=== PATIENT | male | born 1970 | race Asian ===

== ENCOUNTER 2020-11-08 08:01 | Outpatient (CLI) | payer OTHER ==
[2020-11-08 09:02] VITALS: BP 148/90
--- NOTE | 2020-11-08 09:02 | SLEEP CARE CONSULTATION ---
Information from patient questionnaire entered by Oc Montgomery. I have reviewed and concur with the information entered by Oc Montgomery. This document represents the service I personally performed and the decisions made by me, Kendra Patel ARNP. History of Present Illness Service Date and Time: 11/08/2020 0801 Reason for Visit: New patient Chief Complaint: reports: Unrefreshed sleep, Snoring, Observed pauses in breathing, Other (Update supplies) Date of Onset: ~10 years Usual bedtime: ~2100 (9:00 AM) Time it takes to fall asleep: ~ 5 minutes Snores at night: Yes Observed to quit breathing while asleep: Yes Sleeps alone due to snoring: Yes Number of times waking at night: Multiple times before CPAP Reasons for waking at night: reports: Choking, Snoring, Gasping for air, Bathroom, Other (Unknown reason) Toss, Turn, or Twitch while sleeping: Yes Recalls having dreams: Yes Usually gets out of bed at: 06:00 AM Feels refreshed in the morning: Yes (with CPAP) Morning headache: Yes (No CPAP) Sleepy or fatigued during the day: Yes Ever fallen asleep while driving: Yes Takes day naps: No Dreams during day naps: Yes Prior sleep studies: Yes Year and Where: 02/2012 ([facility]); 07/2020 ([facility]) Additional HPI information: PHI PERDOMO was previously diagnosed to have very severe, AHI 63.3, obstructive sleep apnea-hypopnea syndrome and comes in today to establish care for his CPAP therapy. - Parasomnia Symptoms Ever been unable to move upon waking from sleep: No Walks in sleep: No Talks in sleep: Yes Ever acted out dreams in sleep: No Ever felt weak in the knees when startled or emotional: Yes Bothered by creepy, crawly, restless sensations in legs: Yes Problems with memory or concentration: No CPAP Compliance Data - Data Reviewed with Patient Average duration of nightly device use: 4 hours 48 minutes Compliance rate %: 48 Current pressure setting (cmH2O): 4-9 Average residual AHI: 5.4 Central apnea: 0.8 Obstructive apnea: 3.6 Compliance data discussion: He is getting his supplies from [employer] in [place]. He is using an Eson or Eson 2 nasal mask. He last changed his cushion about 1.5-2 weeks ago. He does have a backup mask if needed. Subjective Missed days of use due to: reports: mask issues (removes mask at night when asleep because he has difficulty due to nasal congestion) Patient concerns: reports: nasal congestion (occasional), dry mouth, nose, throat (when he occasionally breathes through mouth after removing mask), other (difficulty breathing through nose sometimes, just repositions and helps). denies: aerophagia, mask discomfort, air blowing in eyes, mask leak noise, condensation in mask/hose, epistaxis Observed to snore while using device: No Current pressure setting perceived as: too low (possibly) On therapy, patient: reports: sleeping better, awakening more refreshed, being more awake and alert during the day, more rested overall, other (throat less irritated in the morning). 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 Patient is and lives in [place]. Have you smoked in the past 12 months: No Cigarettes per day (20/pack): 5 Years of smokin Quit date: 2017 Smoking Pack Years: 2.0 Alcohol use: Yes Alcohol amount and frequency: 6, socially Caffeine use: Yes Caffeine amount and frequency: 3 x daily Family History Family history of sleep disordered breathing: No Allergies and Home Medications Drug allergies reviewed: Yes (NKDA) Home medication list reviewed: Yes [facility] Weight gain over past 5 years: 10 Cardiovascular: reports: high blood pressure, leg or foot swelling Respiratory: reports: chronic cough Gastrointestinal: reports: heartburn, difficulty swallowing Neurological: reports: headaches Psychiatric: denies: anxiety, depression Ear/Nose/Throat: reports: nasal congestion, sinus problems, dry mouth/throat, hoarseness, wisdom teeth removed (2 lower teeth removed). denies: tonsillectomy Endocrine: denies: thyroid disease Musculoskeletal: reports: joint pain (stiffness) Immunologic: reports: allergies to food or environment (environment (dust, luh lens)) Physical Exam Blood Pressure: 148/90 Cuff size: long Heart Rate: 63 O2 Saturation: 99 Height: 5 ft 6 in Weight: 212 lb Body Mass Index: 34.2 BMI Classification: Obese Heart: regular rate and rhythm Lungs: clear bilaterally Impression and Plan 1. Obstructive Sleep Apnea-Hypopnea Syndrome, very severe, with poor treatment compliance and fair apnea control with a minimally elevated residual AHI. On CPAP therapy, the patient has better sleep quality and is more rested overall. The patients pressure will be changed to autoCPAP 8-10 cmH20 for elevation of residual AHI. Patient has also been having some difficulty with breathing through his nose at night and he will take the mask off. He then breathes through his mouth and his mouth and throat get really dry. Nasal congestion and oral dryness can be reduced with increasing the CPAP humidity. The heated hose can be adjusted higher if condensation with higher humidity setting. Verbal instructions given on how to change humidity and heated hose settings with rationale explaining why to change. Patient would like to update his machine and supplies. He last updated his device in 2011. Patient was informed that another DME can be used. I will have my credentialing coordinator inform of DME options. A DWO prescription will then be made. Patient advised to contact this office if further supply problems. The patients CPAP is over 5 years old and of reasonable use. Thus, the CPAP will be updated. The new CPAPs also have a better humidity system which could assist control of patients dryness symptoms. A DWO prescription will be made. Compliance guidelines for new device and follow up discussed. Patient advised to contact me if pressure change is uncomfortable so that it can be adjusted. Goals for apnea control discussed. Patient's apnea severity and rationale for treatment to reduce apnea, improve sleep quality and reduce cardiovascular and cerebrovascular events was reviewed. I also reviewed the benefit of consistent device use of CPAP for hypertension and gastric reflux. He was encouraged to lose weight. Weight loss can be done with reducing portion size, reducing refined foods and balancing content with vegetables, fruit and whole grains. * Change auto CPAP pressure to 8-10 cmH2O * Transfer DME * Update machine * Notify me if snoring with mask or feeling that the pressure is too much or too little * Attempt to lose weight * Call this office if any problems using CPAP * Return for follow up one month after obtaining new device, or sooner if concerns arise Counseling Topics: Spare mask, Weight loss health impact Prescriptions: Auto CPAP, Device supplies Visit Type: In Office Time Spent with Patient (minutes): 41 Provider Statement: I spent 100% of the Face to Face Visit with the patient with greater than 50% spent counseling the patient and coordination of care.
== END 2020-11-08 08:02 | disposition home or self-care (01) ==
LOC: SC 08:01
PROVIDERS: ATTEND Nurse Practitioner Family
DX: G47.33 Obstructive sleep apnea (adult) (pediatric) (principal); E66.9 Obesity, unspecified; Z68.34 Body mass index [BMI] 34.0-34.9, adult; Z87.891 Personal history of nicotine dependence
CPT/HCPCS: 99203; 99212

== ENCOUNTER 2022-05-15 09:46 | Outpatient (CLI) | payer OTHER ==
--- NOTE | 2022-05-15 10:18 | SLEEP CARE CONSULTATION ---
Information from patient questionnaire entered by Arielle Paiz. I have reviewed and concur with the information entered by Arielle Paiz. This document represents the service I personally performed and the decisions made by me, Kendra Patel ARNP. History of Present Illness Service Date and Time: 05/15/2022 0946 Previous diagnosis: Very Severe, Obstructive Sleep Apnea-Hypopnea Syndrome AHI: 63.3 Reason for follow up: annual (LAST SEEN 10/2020) Equipment type: CPAP (RESMED Airsense 11, s/u 12/2020) Equipment obtained from: Other ([facility]; getting supplies but needs updated prescription) Mask style: Nasal Backup mask available: Yes (old mask) Last cushion change: 2 weeks Prior sleep studies: Yes Year and Where: 02/2012 ([facility]); 07/2020 ([facility]) HPI additional information: PHI PERDOMO was diagnosed to have very severe, AHI 63.3, obstructive sleep apnea-hypopnea syndrome and returned today for CPAP therapy annual follow-up. Sleep Study - Results Prior sleep studies: Yes Year and Where: 02/2012 ([facility]); 07/2020 ([facility]) CPAP Compliance Data - Data Reviewed with Patient Average duration of nightly device use: 6 HRS 0 MIN Compliance rate %: 84 (11/12/2021-05/10/22; 178/180 days used) Current pressure setting (cmH2O): 8-10 (avg 10.0) Average residual AHI: 5.1 Central apnea: 1.3 Obstructive apnea: 2.8 Subjective Missed days of use due to: reports: other (power outage) Patient concerns: reports: air blowing in eyes (just needs adjustment to resolve). denies: aerophagia, mask discomfort, mask leak noise, condensation in mask/hose, nasal congestion, dry mouth, nose, throat, epistaxis Observed to snore while using device: Yes (sometimes) Current pressure setting perceived as: comfortable On therapy, patient: reports: sleeping better, awakening more refreshed, being more awake and alert during the day, more rested overall. denies: drowsiness while driving Initial [place] Sleepiness Scale score: 20 (in 2020) Current [place] Sleepiness Scale score: 13 (05/15/22) Allergies and Home Medications Drug allergies reviewed: Yes (NKDA) Home medication list reviewed: Yes (no changes) Review of Systems Review of systems same as previous: Yes (no changes) Physical Exam Vital signs obtained and entered by: ARIELLE Berrios MA Blood Pressure: 144/88 (LEFT ARM) Cuff size: regular Heart Rate: 75 O2 Saturation: 97 Height: 5 ft 6 in Weight: 231 lb 6.4 oz Body Mass Index: 37.3 BMI Classification: Obese Impression and Plan 1. Obstructive Sleep Apnea-Hypopnea Syndrome, very severe, with good treatment compliance and good apnea control with minimal elevation of residual AHI. On CPAP therapy, the patient has better sleep quality and is more rested overall. He states occasional snoring heard by his and his residual AHI is slightly elevated. The patients pressure will be changed to autoCPAP 8-11 cmH20 for elevation of residual AHI and snoring. Patient advised to contact me if pressure change is uncomfortable so that it can be adjusted. Goals for apnea control discussed. Patient's apnea severity and rationale for treatment to reduce apnea, improve sleep quality and reduce cardiovascular and cerebrovascular events was reviewed. I also reviewed the benefit of consistent device use of CPAP for hypertension and gastric reflux. 2. Obesity, unspecified. Patient has gained weight. Currently patients BMI is 37.3. Obesity increases the risk of apnea, CPAP pressure requirements and overall health risks especially cardiovascular and diabetes. Thus patient is advised to lose weight. The patient's CPAP pressure range should accommodate immanuel e weight loss. Symptoms to report for additional pressure adjustment discussed. * Change auto CPAP pressure to 8-11 cmH2O * Update supplies * Notify me if snoring with mask or feeling that the pressure is too much or too little * Attempt to lose weight * Call this office if any problems using CPAP * Return for follow up in 1 year, or sooner if concerns arise Counseling Topics: Spare mask, Weight loss health impact Visit Type: In Office Time Spent with Patient (minutes): 21 Provider Statement: I spent 100% of the Face to Face Visit with the patient with greater than 50% spent counseling the patient and coordination of care.
[2022-05-15 10:19] VITALS: BP 144/88
== END 2022-05-15 09:47 | disposition home or self-care (01) ==
LOC: SC 09:46
PROVIDERS: ATTEND Nurse Practitioner Family
DX: G47.33 Obstructive sleep apnea (adult) (pediatric) (principal); E66.9 Obesity, unspecified; Z68.37 Body mass index [BMI] 37.0-37.9, adult
CPT/HCPCS: 99212; 99213

== ENCOUNTER 2023-07-03 11:24 | Outpatient (CLI) | payer OTHER ==
--- NOTE | 2023-07-03 11:48 | Sleep Patient Instructions ---
Sleep Center Visit Summary - Patient Visit Information Reason for Visit: Annual follow-up - Patient Instructions Additional Instructions: You will continue with CPAP therapy with pressure changed to 9-12 cmH2O. A supply prescription will be updated with your DME. We encourage you to continue to try to lose weight. Please follow up with the sleep care office in 1 year. - Clinic Information Contact: [facility] [address] [place] [address] [email or web address] T: [phone]
--- NOTE | 2023-07-03 11:52 | SLEEP CARE CONSULTATION ---
Information from patient questionnaire entered by Gregor Paiz. I have reviewed and concur with the information entered by Gregor Paiz. This document represents the service I personally performed and the decisions made by , Kendra Patel ARNP. History of Present Illness Service Date and Time: 07/03/2023 1124 Previous diagnosis: Very Severe, Obstructive Sleep Apnea-Hypopnea Syndrome AHI: 63.3 Reason for follow up: annual (LAST SEEN 04/2022) Equipment type: CPAP (RESMED Airsense 11, s/u 12/2020) Equipment obtained from: Other ([facility]; getting supplies) Mask style: Nasal (over the nose) Backup mask available: Yes Last cushion change: a month Prior sleep studies: Yes Year and Where: 02/2012 ([facility]); 07/2020 ([facility]) HPI additional information: PHI PERDOMO was diagnosed to have very severe, AHI 63.3, obstructive sleep apnea-hypopnea syndrome and returned today for CPAP therapy annual follow-up. Sleep Study - Results Prior sleep studies: Yes Year and Where: 02/2012 ([facility]); 07/2020 ([facility]) CPAP Compliance Data - Data Reviewed with Patient Average duration of nightly device use: 6 HRS 43 MINS Compliance rate %: 95 (06/30/22-06/29/23; 354/365 days used) Current pressure setting (cmH2O): 8-11 (avg 10.9, max 11) Average residual AHI: 4.3 Central apnea: 1 Obstructive apnea: 2.6 Hypopnea: 0.6 Average large leak: 0.2 L/min Subjective Missed days of use due to: reports: other (fell asleep without it) Patient concerns: reports: condensation in mask/hose (occasionally). denies: aerophagia, mask discomfort, air blowing in eyes, mask leak noise, nasal congestion, dry mouth, nose, throat, epistaxis Observed to snore while using device: No Current pressure setting perceived as: comfortable (occasionally hard to breathe through nose) On therapy, patient: reports: sleeping better, awakening more refreshed, being more awake and alert during the day, more rested overall. denies: drowsiness while driving Initial [place] Sleepiness Scale score: 20 (in 2020) Current [place] Sleepiness Scale score: 15 (07/03/23) Allergies and Home Medications Known drug allergies: No Drug allergies reviewed: Yes Home medication list reviewed: Yes (as listed) Allergy and home medication list: Allergies No Known Drug Allergies Allergy (Verified 07/03/23 11:34) Home Medications Cetirizine [ZyrTEC] See Rx Instructions .ROUTE .COMPLEX 07/03/23 [History] Losartan [Cozaar] See Rx Instructions .ROUTE .COMPLEX 07/03/23 [History] allopurinoL [Allopurinol] See Rx Instructions .ROUTE .COMPLEX 07/03/23 [History] metFORMIN [Glucophage] See Rx Instructions .ROUTE .COMPLEX 07/03/23 [History] Review of Systems Review of systems same as previous: No (DIABETES) Physical Exam Vital signs obtained and entered by: GREGOR Berrios MA Blood Pressure: 158/86 (RIGHT ARM) Cuff size: long Heart Rate: 75 O2 Saturation: 99 Height: 5 ft 6 in Weight: 228 lb 3.2 oz Body Mass Index: 36.8 BMI Classification: Obese Impression and Plan 1. Obstructive Sleep Apnea-Hypopnea Syndrome, very severe, with good treatment compliance and good apnea control. On CPAP therapy, the patient has better sleep quality and is more rested overall. Patient has significant improvement of his sleep apnea and is happy with CPAP therapy. He states occasionally he will wake up feeling like he cannot breathe. He thinks it is due to his sinuses being stuffed. He is using at the top of his pressure range of 8-11 cmH2O. His residual AHI is at 4.3 and he could possibly just need a little more pressure. I will adjust his pressure to 9-12 cm H2O to see if this reduces the air hunger wake ups. He will call if pressure is uncomfortable. Discussed with patient goal s of therapy. He voiced understanding. Patient's apnea severity and rationale for treatment to reduce apnea, improve sleep quality and reduce cardiovascular and cerebrovascular events was reviewed. I also reviewed the benefit of consistent device use of CPAP for hypertension, gastric reflux. He has a new diagnosis of diabetes. 2. Obesity, unspecified. Currently patients BMI is 36.8. Obesity increases the risk of apnea, CPAP pressure requirements and overall health risks especially cardiovascular and diabetes. Thus patient is advised to lose weight. * Change auto CPAP pressure to 9-12 cmH2O * Update supply prescription * Notify me if snoring with mask or feeling that the pressure is too much or too little * Attempt to lose weight * Call this office if any problems using CPAP * Return for follow up in 12 months, or sooner if concerns arise Adjust device pressure to (cmH2O): 9-12 Counseling Topics: Spare mask, Weight loss health impact Prescriptions: Device supplies Visit Type: In Office Time Spent with Patient (minutes): 21 Provider Statement: I spent 100% of the Face to Face Visit with the patient with greater than 50% spent counseling the patient and coordination of care.
[2023-07-03 12:01] VITALS: BP 158/86; O2SAT 99
== END 2023-07-03 11:25 | disposition home or self-care (01) ==
LOC: SC 11:24
PROVIDERS: ATTEND Nurse Practitioner Family
DX: G47.33 Obstructive sleep apnea (adult) (pediatric) (principal); E66.9 Obesity, unspecified; Z68.36 Body mass index [BMI] 36.0-36.9, adult
CPT/HCPCS: 99212; 99213